=== PATIENT | female | born 1965 | race African-American/Black ===

== ENCOUNTER 2019-06-07 17:37 | Emergency (ER) | payer OTHER ==
[2019-06-07 17:48] VITALS: TEMP 98.7; BMI 27.4
--- NOTE | 2019-06-07 18:15 | PDOC ---
History of Present Illness - General Chief Complaint: Weakness Stated Complaint: WEAKNESS Time Seen by Provider: 06/07/19 18:14 History Source: Patient Exam Limitations: No Limitations - History of Present Illness Initial Comments: Pt is a 53 yo F, with PMH of HTN, DM, b/l lumpectomy (no chemo/radiation), and anemia? (on Fe-pills in the past), who presents with complaints of generalized fatigue x3 days. 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 Pt has never had this feeling before , and has been working less hours than usual. Pt also states her menstrual periods have been occurring less frequently, with LMP being 2 months ago. Pt also has noticed waking up from sleep for the past 2 weeks, with no symptoms or precipitating event, and has trouble falling back asleep for hours. Pt denies any recent fevers/chills, headache, vision changes, syncope, chest pain, palpitations, SOB, nausea/vomiting, abdominal pain, urinary symptoms, diarrhea/ constipation, or leg swelling. Allergies: YOGESHDA PCP: Axel Pt moved to [place] from [facility] many years ago. Social: Pt denies any cigarette, alcohol, or drug use. Pt denies any recent travel or sick contacts. Surgical: no relevant history. Family: no relevant history. 06/07/19 19:13 06/07/19 19:39 Past History - Travel Traveled outside of the country in the last 30 days: No Close contact w/someone who was outside of country & ill: No - Past Medical History Allergies/Adverse Reactions: Allergies Allergy/AdvReac Type Severity Reaction Status Date / Time No Known Drug Allergies Allergy Verified 06/07/19 17:48 Home Medications: Ambulatory Orders Glipizide/Metformin HCl [Glipizide-Metformin 5-500 mg] 1 each PO BID 06/07/19 Losartan Potassium [Cozaar] 100 mg PO DAILY 06/07/19 Anemia: No Asthma: No Cancer: No Cardiac Disorders: No CVA: No COPD: No CHF: No Dementia: No Diabetes: Yes GI Disorders: No Disorders: No HTN: Yes Hypercholesterolemia: No Liver Disease: No Seizures: No Thyroid Disease: No - Surgical History Abdominal Surgery: No Appendectomy: No Cardiac Surgery: No Cholecystectomy: No Lung Surgery: No Neurologic Surgery: No Orthopedic Surgery: No - Suicide/Smoking/Psychosocial Hx Smoking History: Never smoked Hx Alcohol Use: No Drug/Substance Use Hx: No Substance Use Type: None Hx Substance Use Treatment: No Review of Systems - Review of Systems Able to Perform ROS?: Yes Is the patient limited Czech proficient: No Constitutional: Yes: Malaise, Weight Stable. No: Chills, Diaphoresis, Fever, Loss of Appetite, Night Sweats, Weakness HEENTM: No: Blurred Vision, Recent change in vision, Double Vision, Nose Congestion, Tinnitus, Throat Pain, Difficulty Swallowing Respiratory: No: Cough, Orthopnea, Shortness of Breath Cardiac (ROS): No: Chest Pain, Edema, Irregular Heart Rate, Lightheadedness, Palpitations, Syncope, Chest Tightness ABD/GI: No: Constipated, Diarrhea, Nausea, Poor Appetite, Poor Fluid Intake, Vomiting, Abdominal cramping : No: Burning, Dysuria, Flank Pain, Pain, Urgency Musculoskeletal: No: Back Pain, Joint Pain, Joint Swelling, Muscle Pain, Muscle Weakness Integumentary: No: Rash Neurological: No: Headache, Numbness, Paresthesia, Weakness, Unsteady Gait, Ataxia, Dizziness Psychiatric: Yes: Sleep Pattern Change. No: Anxiety, Depression, Stressors, Mood Swings, Change in Appetite Endocrine: No: Increased Thirst, Increased Urine, Change in Weight Hematologic/Lymphatic: No: Anemia, Blood Clots, Easy Bleeding, Easy Bruising All Other Systems: Reviewed and Negative *Physical Exam - Vital Signs Last Vital Signs Temp Pulse Resp BP Pulse Ox 98.7 F 107 H 18 142/87 99 06/07/19 17:46 06/07/19 17:46 06/07/19 17:46 06/07/19 17:46 06/07/19 17:46 - Physical Exam Comments: Mild tachycardia (HR 110), pt afebrile. Pt in NAD, normal body habitus. Pt alert and oriented x3. upper trimmer generally intact, muscular strength and sensation intact. Cerebellar exam WNL. No midline spinal tenderness, step-offs, or crepitus. Head normocephalic, atraumatic. Eyes PERRLA, EOMI. Dry oral membranes. Oropharynx without erythema or exudates, no LAD b/l. No nasal congestion, hearing intact. Clear heart sounds, S1/S2, no JVD, b/l pedal edema, or heart murmur. Clear lung sounds, no respiratory distress, wheezes, crackles, or accessory muscle use. No abdominal or CVA tenderness to palpation, no rebound, no guarding. Abdomen soft, non-distended, and with normoactive bowel sounds. Decreased skin turgor in hands. Capillary refill WNL. Skin without jaundice or rash. 06/07/19 19:12 ED Treatment Course - LABORATORY CBC & Chemistry Diagram: 06/07/19 18:50 06/07/19 18:50 Medical Decision Making - Medical Decision Making Pt was seen at bedside, also will be seen by attending Dr. Abarca. Pt presenting with complaints of generalized fatigue on exertion and poor sleep, worsening over the last 3 days. Menstrual periods are becoming less frequent. Exam benign , other than decreased skin turgor (appears dry). Considering hormonal change ( menopause) vs ACS vs worsening DM/hyperglycemia vs electrolyte abnormalities. No FNDs to suggest central lesion. Bedside BGM showed glucose 320 Provided 1 L IV NS for improvement of hyperglycemia and likely dehydration. Will continue to reassess pt and monitor for symptomatic improvement. 06/07/19 19:36 CBC and CMP WNL other than elevated blood glucose. Pending serum 06/07/19 19:40 Repeat BGM 140 after 1 L IV NS negative UA with no ketones Pt can be discharged to home with follow-up. Pt advised to follow-up with PCP in 1-2 days. Strict return precautions provided with pt understanding. 06/07/19 21:32 *DC/Admit/Observation/Transfer Diagnosis at time of Disposition: Hyperglycemia Fatigue Qualifiers: Fatigue type: unspecified Qualified Code(s): R53.83 - Other fatigue - Discharge Dispostion Disposition: HOME Condition at time of disposition: Improved Decision to Admit order: No - Referrals Referrals: Aaron Reyna [Non Staff, Medical] - - Patient Instructions Printed Discharge Instructions: DI for Hyperglycemia -- Adult, DI for Fatigue Additional Instructions: You were seen in the ER today for fatigue. The results of your labs today showed only high sugar. Please follow-up with your primary care doctor within 1- 2 days to discuss your visit and make sure your symptoms have improved. Please return to the ER if you have any worsening pain, development of fevers or chills , loss of consciousness, inability to tolerate food or fluids, or any other concerns. - Post Discharge Activity
[2019-06-07] MEDS ORDERED: SODIUM CHLORIDE 1,000 ML IV STA (18:35)
[2019-06-07 19:06] LABS: EOS % 0.6 % (0-4.5); HEMATOCRIT 39.1 % (32.4-45.2); HEMOGLOBIN 13.2 GM/dL (10.7-15.3); MCH 28.6 pg (25.7-33.7); MCHC 33.7 g/dl (32.0-36.0); MEAN PLT VOLUME 9.5 fl (7.5-11.1); NEUT % 57.4 % (42.8-82.8); PLATELET COUNT 173 K/MM3 (134-434); RDW 13.6 % (11.6-15.6); WHITE BLOOD COUNT 5.4 K/mm3 (4.0-10.0)
[2019-06-07 19:28] LABS: ALBUMIN 3.9 g/dl (3.4-5.0); BILIRUBIN,TOTAL 0.2 mg/dL (0.2-1); CALCIUM 9.6 mg/dL (8.5-10.1); CREATININE 0.9 mg/dL (0.55-1.3); MAGNESIUM 2.3 mg/dL (1.8-2.4); POTASSIUM 4.5 mmol/L (3.5-5.1)
--- NOTE | 2019-06-07 20:25 | PDOC ---
Documentation entered by Laurie Stallworth SCRIBE, acting as scribe for Samson Abarca MD. Samson Abarca MD: This documentation has been prepared by the Federica lewis Sammi, SCRIBE, under my direction and personally reviewed by me in its entirety. I confirm that the documentation accurately reflects all work, treatment, procedures, and medical decision making performed by me. Attending Attestation - Resident Resident Name: NeldaSofya - ED Attending Attestation I have performed the following: I have examined & evaluated the patient, The case was reviewed & discussed with the resident, I agree w/resident's findings & plan, Exceptions are as noted - HPI HPI: 06/07/19 19:15 The patient is a 53 year old male, with a significant PMH of HTN and DM, who presents to the emergency department for evaluation of generalized fatigue. The patient states that for the past 2 days, she has been very tired. Denies any F/ C. Denies CP/SOB. Denies unilateral weakness. Pt states that she is diabetic on glipizide and metformin. Her sugars have been in the 140s when she checks, but she does report increased thirst and urine output. Denies N/V/D. Pt also notes that she has been anemic in the past due to fibroids, but her LMP was 2 months ago. Denies chest pain, shortness of breath, headache and dizziness. Denies fever, chills, nausea, vomiting, diarrhea and constipation. Allergies: NKA - Physicial Exam PE: 06/07/19 20:34 "GENERAL: Awake, alert, and fully oriented, in no acute distress. HEAD: No signs of trauma EYES: PERRLA, EOMI, sclera anicteric, conjunctiva clear ENT: Auricles normal inspection, hearing grossly normal, nares patent, oropharynx clear without exudates. Moist mucosa NECK: Nontender, no stepoffs, Normal ROM, supple, no lymphadenopathy, JVD, or masses LUNGS: Breath sounds equal, clear to auscultation bilaterally. No wheezes, and no crackles HEART: Regular rate and rhythm, normal S1 and S2, no murmurs, rubs or gallops ABDOMEN: Soft, nontender, normoactive bowel sounds. No guarding, no rebound. No masses EXTREMITIES: Normal range of motion, no edema. No clubbing or cyanosis. No cords, erythema, or tenderness NEUROLOGICAL: Cranial nerves II through XII intact. 5/5 strength and sensation in all extremities, Normal speech, normal gait, normal cerebellar function SKIN: Warm, Dry, normal turgor, no rashes or lesions noted. - Medical Decision Making 06/07/19 20:34 53 F with generalized fatigue. Fingerstick in ED is >300. Suspect volume depletion 2/2 uncontrolled sugars. Will also check for anemia. Pt without CP/SOB , but will r/o ACS with EKG and trop. - labs, trop - IVF 06/07/19 21:37 Labs wnl Fingerstick improved from 300s to <200 with IVF Pt reassessed - now feeling much better with fluids Repeat HR 80 after fluids. Pt is well appearing, with normal vitals. Clinically stable for DC at this time. I discussed the physical exam findings, ancillary test results and final diagnoses with the patient. I answered all of the patient's questions. The patient was satisfied with the care received and felt comfortable with the discharge plan and treatment plan. The patient agrees to follow up with the primary care physician within 24-72 hours.
[2019-06-07 21:13] LABS: URINE APPEARANCE CLEAR; URINE BILIRUBIN NEGATIVE (NEGATIVE); URINE COLOR YELLOW; URINE GLUCOSE (UA) 1+ (NEGATIVE); URINE KETONE NEGATIVE (NEGATIVE); URINE LEUK ESTERASE NEGATIVE (NEGATIVE); URINE NITRITE NEGATIVE (NEGATIVE); URINE PROTEIN NEGATIVE (NEGATIVE); URINE UROBILINOGEN 0.2 mg/dL (0.2-1.0)
[2019-06-07 23:29] VITALS: BP 145/90; PULSE 94
--- NOTE | 2019-06-08 11:12 | EKG ---
Test Reason : Blood Pressure : / mmHG Vent. Rate : 090 BPM Atrial Rate : 090 BPM P-R Int : 138 ms QRS Dur : 078 ms QT Int : 334 ms P-R-T Axes : 073 013 014 degrees QTc Int : 408 ms NORMAL SINUS RHYTHM BIATRIAL ENLARGEMENT ABNORMAL ECG WHEN COMPARED WITH ECG OF 17-JUN-2014 09:05, NO SIGNIFICANT CHANGE WAS FOUND Confirmed by ERICK DE LEON MD ([id number]) on 06/08/2019 11:12:07 AM Referred By: Confirmed By:ERICK DE LEON MD
--- NOTE | 2019-06-23 09:36 | EKG ---
Test Reason : Blood Pressure : / mmHG Vent. Rate : 086 BPM Atrial Rate : 086 BPM P-R Int : 140 ms QRS Dur : 070 ms QT Int : 354 ms P-R-T Axes : 072 015 016 degrees QTc Int : 423 ms SINUS RHYTHM WITH PREMATURE SUPRAVENTRICULAR COMPLEXES POSSIBLE LEFT ATRIAL ENLARGEMENT BORDERLINE ECG WHEN COMPARED WITH ECG OF 07-JUN-2019 18:36, PREMATURE SUPRAVENTRICULAR COMPLEXES ARE NOW PRESENT Confirmed by Aidan Wilson MD ([id number]) on 06/23/2019 9:35:37 AM Referred By: Confirmed By:Aidan Wilson MD
== END 2019-06-07 21:55 | disposition home or self-care (01) ==
LOC: JER 17:37
PROC: 3E0337Z Introduction of Electrolytic and Water Balance Substance into Peripheral Vein, Percutaneous Approach (ICD-10-PCS; principal; 2019-06-07)
DX: E11.65 Type 2 diabetes mellitus with hyperglycemia (principal); R53.83 Other fatigue; I10 Essential (primary) hypertension; Z79.84 Long term (current) use of oral hypoglycemic drugs
CPT/HCPCS: 36415; 80053; 81003; 82550; 82962; 83735; 84484; 84703; 85025; 93005; 93010; 99284-25; J7030

== ENCOUNTER 2019-09-20 09:13 | Emergency (ER) | payer OTHER ==
[2019-09-20 09:21] VITALS: BMI 26.4
[2019-09-20] MEDS ORDERED: SODIUM CHLORIDE 1,000 ML IV STA (10:21)
[2019-09-20] MEDS ORDERED: ACETAMINOPHEN 1000 MG/100 ML VIAL (NON FORMULARY) IVPB ONE (10:21)
--- NOTE | 2019-09-20 10:21 | PDOC ---
History of Present Illness - General Chief Complaint: Chronic pain Stated Complaint: BACK PAIN Time Seen by Provider: 09/20/19 09:22 - History of Present Illness Initial Comments: 09/20/19 10:21 53 F with h/o DM, HTN presents to ED with several weeks of upper back pain. Pt reports bilateral upper back pain. She denies any trauma/falls. States that she initially saw her PMD, who prescribed ibuprofen. This helped initially but states it no longer works for her. Pt states that the pain starts in her upper back and radiates down to her midback. Denies any weakness/numbness in any extremity. Denies F/C. Pt also endorses pleuritic chest pain that started several days ago. Denies any SOB. Denies leg swelling. Past History - Past Medical History Allergies/Adverse Reactions: Allergies Allergy/AdvReac Type Severity Reaction Status Date / Time No Known Drug Allergies Allergy Verified 09/20/19 09:16 Home Medications: Ambulatory Orders Glipizide/Metformin HCl [Glipizide-Metformin 5-500 mg] 1 each PO BID 06/07/19 Losartan Potassium [Cozaar] 100 mg PO DAILY 06/07/19 Ibuprofen 1 tab PO TID PRN 09/20/19 Anemia: No Asthma: No Cancer: No Cardiac Disorders: No CVA: No COPD: No CHF: No Dementia: No Diabetes: Yes GI Disorders: No Disorders: No HTN: Yes Hypercholesterolemia: No Liver Disease: No Seizures: No Thyroid Disease: No - Surgical History Abdominal Surgery: No Appendectomy: No Cardiac Surgery: No Cholecystectomy: No Lung Surgery: No Neurologic Surgery: No Orthopedic Surgery: No - Psycho Social/Smoking Cessation Hx Smoking History: Never smoked Hx Alcohol Use: No Drug/Substance Use Hx: No Substance Use Type: None Hx Substance Use Treatment: No Review of Systems - Review of Systems Comments:: 09/20/19 10:23 "GENERAL/CONSTITUTIONAL: No fever or chills. No weakness. HEAD, EYES, EARS, NOSE AND THROAT: No change in vision. No ear pain or discharge. No sore throat. CARDIOVASCULAR: + pleuritic chest pain, no shortness of breath, no loss of consciousness RESPIRATORY: No cough, wheezing, or hemoptysis. GASTROINTESTINAL: No nausea, vomiting, diarrhea or constipation. GENITOURINARY: No dysuria, frequency, or change in urination. MUSCULOSKELETAL: + upper back pain, No joint or muscle swelling or pain. No neck pain. SKIN: No rash NEUROLOGIC: No vertigo, no change in strength/sensation. ENDOCRINE: No increased thirst. No abnormal weight change. HEMATOLOGIC/LYMPHATIC: No anemia, easy bleeding, or history of blood clots. ALLERGIC/IMMUNOLOGIC: No hives or skin allergy. *Physical Exam - Vital Signs Last Vital Signs Temp Pulse Resp BP Pulse Ox 97.8 F 96 H 16 112/76 99 09/20/19 09:20 09/20/19 09:20 09/20/19 09:20 09/20/19 09:20 09/20/19 09:20 - Physical Exam Comments: 09/20/19 10:24 "GENERAL: Awake, alert, and fully oriented, in no acute distress. HEAD: No signs of trauma EYES: PERRLA, EOMI, sclera anicteric, conjunctiva clear ENT: Auricles normal inspection, hearing grossly normal, nares patent, oropharynx clear without exudates. Moist mucosa NECK: Nontender, no stepoffs, Normal ROM, supple, no lymphadenopathy, JVD, or masses LUNGS: Breath sounds equal, clear to auscultation bilaterally. No wheezes, and no crackles HEART: Regular rate and rhythm, normal S1 and S2, no murmurs, rubs or gallops ABDOMEN: Soft, nontender, normoactive bowel sounds. No guarding, no rebound. No masses EXTREMITIES: Normal range of motion, no edema. No clubbing or cyanosis. No cords, erythema, or tenderness NEUROLOGICAL: Cranial nerves II through XII intact. 5/5 strength and sensation in all extremities, Normal speech, normal gait, normal cerebellar function SKIN: Warm, Dry, normal turgor, no rashes or lesions noted. BACK: + TTP over trapezius muscles bilaterally, no midline TTP, no stepoffs Heart Score/ECG Review - History History: Slightly suspicious - Electrocardiogram EKG: Normal - Age Age: 45-65 - Risk Factors Risk Factors Heart Score: Yes Hx Hypertension, Yes Hx Diabetes Based on the list above the patient has:: 1-2 risk factors - Troponin Troponin: </= normal limit - Score Heart Score - Total: 2 - ECG Impressions Comment:: 09/20/19 10:24 NSR, no KIRILL/STDs, no TWIS, axis wnl, intervals wnl, rate 92 ED Treatment Course - LABORATORY CBC & Chemistry Diagram: 09/20/19 10:00 09/20/19 10:00 - RADIOLOGY Radiology Studies Ordered: Category Date Time Status CHEST CTA [CT] Stat CT Scan 09/20/19 10:13 Ordered Medical Decision Making - Medical Decision Making 09/20/19 10:25 53 F with upper back pain, likely msk in etiology as pt tender over trapezius muscles. No midline tenderness, no neuro deficits. Pt also with pleuritic chest pain that is also likely msk, but will r/o PE as pt slightly tachycardic. EKG normal, very atypical for ACS. - Labs, trop - CTA chest - IVF, tylenol 09/20/19 12:38 Labs wnl Trop negative. CTA wnl Pt reassessed - pain is improved Will DC with PMD f/u Pt is well appearing, with normal vitals. Clinically stable for DC at this time. I discussed the physical exam findings, ancillary test results and final diagnoses with the patient. I answered all of the patient's questions. The patient was satisfied with the care received and felt comfortable with the discharge plan and treatment plan. The patient agrees to follow up with the primary care physician within 24-72 hours. Discharge - Discharge Information Problems reviewed: Yes Clinical Impression/Diagnosis: Back pain, Chest pain, Muscle soreness Disposition: HOME - Admission No - Follow up/Referral Referrals: Christiano Peraza PA [Primary Care Provider] - Theo Espinal DO [Staff Physician] - - Patient Discharge Instructions Patient Printed Discharge Instructions: DI for Muscle Strain Additional Instructions: Your back pain is likely muscular. Take tylenol or motrin as needed for pain. Follow up with an orthopedist for further evaluation of your pain. Call the number provided to make an appointment. If you experience worsening back pain, chest pain, shortness of breath, or any other concerning symptoms, return to the ER immediately. Otherwise, see your primary doctor within 48 hours for follow up. - Post Discharge Activity
[2019-09-20 10:28] LABS: BASO % 1.2 % (0-2.0); EOS % 0.8 % (0-4.5); HEMATOCRIT 38.3 % (32.4-45.2); HEMOGLOBIN 12.9 GM/dL (10.7-15.3); LYMPH % 29.7 % (8-40); MCH 28.8 pg (25.7-33.7); MCHC 33.6 g/dl (32.0-36.0); MEAN CELL VOLUME 85.6 fl (80-96); MONO % 10.1 % (3.8-10.2); NEUT % 58.2 % (42.8-82.8); PLATELET COUNT 218 K/MM3 (134-434); RBC 4.48 M/mm3 (3.60-5.2); RDW 14.2 % (11.6-15.6); WHITE BLOOD COUNT 4.1 K/mm3 (4.0-10.0)
[2019-09-20 10:42] LABS: INR 0.95 (0.83-1.09); PROTHROMBIN TIME (PATIENT) 11.2 SEC (9.7-13.0)
[2019-09-20 11:01] LABS: ALBUMIN 3.8 g/dl (3.4-5.0); ALK PHOS 67 U/L (45-117); ANION GAP 4 MMOL/L (8-16); BILIRUBIN,TOTAL 0.4 mg/dL (0.2-1); BLOOD UREA NITROGEN 12.2 mg/dL (7-18); CALCIUM 9.1 mg/dL (8.5-10.1); CHLORIDE 106 mmol/L (98-107); CO2 27 mmol/L (21-32); CREATININE 0.6 mg/dL (0.55-1.3); GLUCOSE,RANDOM 164 mg/dL (74-106); POTASSIUM 3.9 mmol/L (3.5-5.1); SGOT/AST 14 U/L (15-37); SGPT/ALT 35 U/L (13-61); SODIUM 138 mmol/L (136-145); TOT PROT 6.4 g/dl (6.4-8.2)
[2019-09-20 12:45] VITALS: BP 115/73; PULSE 92; TEMP 98.4
--- NOTE | 2019-09-20 13:48 | EKG ---
Test Reason : Blood Pressure : / mmHG Vent. Rate : 092 BPM Atrial Rate : 092 BPM P-R Int : 126 ms QRS Dur : 078 ms QT Int : 342 ms P-R-T Axes : 078 014 019 degrees QTc Int : 422 ms NORMAL SINUS RHYTHM POSSIBLE LEFT ATRIAL ENLARGEMENT BORDERLINE ECG WHEN COMPARED WITH ECG OF 07-JUN-2019 20:00, PREMATURE SUPRAVENTRICULAR COMPLEXES ARE NO LONGER PRESENT Confirmed by MD Lizbeth, Sammy ([id number]) on 09/20/2019 1:48:14 PM Referred By: Confirmed By:Sammy Nieves MD
== END 2019-09-20 13:00 | disposition home or self-care (01) ==
LOC: JERFT 09:13
PROC: 3E033NZ Introduction of Analgesics, Hypnotics, Sedatives into Peripheral Vein, Percutaneous Approach (ICD-10-PCS; principal; 2019-09-20)
DX: M79.18 Myalgia, other site (principal); I10 Essential (primary) hypertension; E11.9 Type 2 diabetes mellitus without complications; Z79.84 Long term (current) use of oral hypoglycemic drugs
CPT/HCPCS: 36415; 71275-TC; 80053; 82550; 84484; 85025; 85610; 85730; 93005; 93010; 99282-25; J0131; J7030